=== PATIENT | female | born 1990 | race Two or more races ===

== ENCOUNTER 2019-04-23 21:51 | Emergency (ER) | payer OTHER ==
[~2019-04-23] VITALS: Ht 149.9 cm; Wt 68.0 kg
[2019-04-23] MEDS ORDERED: Tetracaine 0.5% Opth 4ml Soln RIGHT EYE ONE (22:00)
[2019-04-23] MEDS ORDERED: Fluorescein Strips RIGHT EYE ONE (22:00)
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
--- NOTE | 2019-04-23 22:15 | NUR ---
ED Nurse Note: pt refused motrin, pt states she took motrin 200mg and tylenol 500mg at home, pt reports nausea, ERMD notified.
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
[2019-04-23 22:30] VITALS: BP 118/76
[2019-04-23] MEDS ORDERED: HYDROcodone/Acetamin 5/325 tab ORAL ONE (22:30)
[2019-04-23] MEDS ORDERED: Sulfacetamide 10% Opth 15ml Btl RIGHT EYE STA (22:49)
[2019-04-23] MEDS ORDERED: Sulfacetamide 10% Opth 15ml Btl ONE (23:04)
[2019-04-24] MEDS ORDERED: BLEPH-105 ML OP (00:56)
[2019-04-24] MEDS ORDERED: NORCO 5-325 TA1 EACH ORAL (00:56)
[2019-04-24] MEDS ORDERED: IBUPROFEN600 MG ORAL (00:56)
[2019-04-24 01:00] VITALS: BP 115/71
[2019-04-24 01:03] VITALS: BP 115/71
== END 2019-04-24 01:07 | disposition home or self-care (01) ==
LOC: EMR 22:02
DX: S05.91XA Unspecified injury of right eye and orbit, initial encounter (principal); X58.XXXA Exposure to other specified factors, initial encounter; Y92.9 Unspecified place or not applicable; R11.0 Nausea
CPT/HCPCS: 99282